=== PATIENT | female | born 1995 | race Caucasian/White ===

== ENCOUNTER 2024-03-26 09:41 | Emergency (ER) | payer OTHER, SELFPAY ==
[2024-03-26 09:49] VITALS: BP 105/68; PULSE 75; RESP 16; TEMP 36.6; O2SAT 100
--- NOTE | 2024-03-26 09:54 | ED.SKABFB ---
HPI - Skin/Abscess/Foreign Bdy General Chief complaint: Skin/Abscess/Foreign Body Stated complaint: SORE ON FACE Source: patient Mode of arrival: ambulatory Limitations: no limitations History of Present Illness HPI narrative: 28 y/o female presented for c/o itchy red skin lesion to right upper lip x4 days. She thought it was a cold sore and applied abreva cream and patch to the site. The site has been draining clear fluid. Also says she noticed a few red bumps to the left leg and both arms which started after gardening. Endorses itching, denies pain to the sites. Denies lip, tongue, or throat swelling, shortness of breath or wheezing. Denies changes to soap, detergent, lotion, or any other exposures. No one else in the house or any contacts with similar symptoms. Hx impetigo. Pt is 17 weeks gestation Related Data Home Medications Medication Instructions Recorded Confirmed ferrous sulfate 325 mg (65 mg 325 mg PO 3XW 03/26/24 03/26/24 iron) tablet Allergies Allergy/AdvReac Type Severity Reaction Status Date / Time No Known Allergies Allergy Verified 03/26/24 09:54 Review of Systems Review of Systems: CONSTITUTIONAL: Denies body aches, fever, chills, or sweats. ENT: Denies rhinorrhea, congestion CARDIOVASCULAR: Denies chest pain, palpitations, or edema. RESPIRATORY: Denies cough or dyspnea. SKIN: reports rash to face MUSCULOSKELETAL: Denies back pain, joint pain, or myalgia. NEUROLOGIC: Denies headache, numbness, tingling, or weakness. PMFSH Comments At time of signature, I have reviewed and agree with nursing past medical, surgical, social and family history unless otherwise noted. Please see nursing chart for further information. There is no relevant family history pertinent to the presenting complaint Exam Narrative: GENERAL: Well-appearing EYES: conjunctivae clear, and EOMI. ENT: Right upper lip with 1cm area of yellow crusted vesicular lesion, draining serous fluid, nontender; Mucous membranes moist. Oropharynx without edema, erythema or lesions. NECK: Supple. No lymphadenopathy CHEST: Clear to auscultation. HEART: Regular rate and rhythm. SKIN: Warm, dry. Few scattered red papules to bilateral forearms and left thigh. Nontender, no drainage or warmth. Left thigh lesion <0.5cm, crusted. NEURO: Alert and oriented x3. HENMT: Face images: 1. area of facial lesion Course Course Emergency Course: Patient is aware of diagnosis, understands and agrees to treatment plan. Anticipatory guidance given. Patient agrees to follow-up as directed and is aware of reasons to seek care at the emergency department. Portions of this record may have been created with voice recognition software Level of Care: Express Care Visit Vital Signs Vital signs: Vital Signs Temperature 97.8 F 03/26/24 09:49 Pulse Rate 75 03/26/24 09:49 Respiratory Rate 16 03/26/24 09:49 Blood Pressure 105/68 03/26/24 09:49 Pulse Oximetry 100 03/26/24 09:49 Temperature 97.8 F 03/26/24 09:49 Pulse Rate 75 03/26/24 09:49 Respiratory Rate 16 03/26/24 09:49 Blood Pressure 105/68 03/26/24 09:49 Pulse Oximetry 100 03/26/24 09:49 Reviewed MDM - Skin/Abscess/Foreign Bdy MDM Narrative Medical decision making narrative: Discussed physical exam findings most c/w impetigo. Will treat with mupirocin only at this time. the lesions to the extremities are more c/w insect bites. Advised supportive measures and signs/symptoms to go to the ER. Pt is appropriate for outpt treatment and f/u. Differential Diagnosis Differential diagnosis: Likely abscess of skin or subcutaneous tissue, urticaria, herpes zoster, cellulitis and contact dermatitis Discharge Plan Discharge Clinical Impression: Dermatitis Patient Disposition: Home, Self-Care Condition: Stable Instructions: Antibiotic Form, Impetigo (ED), Poison Gaby (ED) Additional Instructions: Wash the area with gentle s
== END 2024-03-26 10:12 | disposition home or self-care (01) ==
PROVIDERS: Emergency Provider Nurse Practitioner Family; PCP Internal Medicine Infectious Disease
DX: O99.712 Diseases of the skin and subcutaneous tissue complicating pregnancy, second trimester (principal); Z3A.17 17 weeks gestation of pregnancy; L30.9 Dermatitis, unspecified
CPT/HCPCS: 99213; G0463